=== PATIENT | female | born 1950 | race Two or more races ===

== ENCOUNTER 2018-09-09 03:47 | Emergency (ER) | payer OTHER ==
[~2018-09-09] VITALS: Ht 152.4 cm; Wt 66.7 kg
[~2018-09-09 03:47] MED LIST: ALEVE220 M1 PO; ASPIR 8181 MG; BISOPROLOL-HCT1 EAC1; DUI500 PO; KETO10TA2 PO; LISINOPRIL5 MG; METFORMIN HCL500 MG; PERCOCET 5-3251 EACH PO; VASOFLEX TABLE1 EACH; ZOCOR5 MG PO
== END 2018-09-09 07:36 | disposition home or self-care (01) ==
LOC: ER 03:47
DX: R00.2 Palpitations (principal)

== ENCOUNTER 2019-07-19 14:16 | Emergency (ER) | payer OTHER ==
[~2019-07-19] VITALS: Ht 144.8 cm; Wt 66.2 kg
[2019-07-19] MEDS ORDERED: CRESTOR5 MG PO (14:49)
== END 2019-07-19 17:04 | disposition home or self-care (01) ==
LOC: ER 14:16
DX: R00.2 Palpitations (principal)

== ENCOUNTER 2021-06-17 02:50 | Emergency (ER) | payer OTHER ==
[~2021-06-17] VITALS: Ht 144.8 cm; Wt 68.0 kg
[~2021-06-17 02:50] MED LIST changes: +CRESTOR5 MG PO
== END 2021-06-17 10:55 | disposition home or self-care (01) ==
LOC: ER 02:50
DX: R11.11 Vomiting without nausea (principal); R51.9 Headache, unspecified; N39.0 Urinary tract infection, site not specified; I16.0 Hypertensive urgency; I10 Essential (primary) hypertension

== ENCOUNTER 2021-09-04 08:49 | Emergency (ER) | payer OTHER ==
[~2021-09-04] VITALS: Ht 144.8 cm; Wt 65.8 kg
[2021-09-04] MEDS ORDERED: ZESTRIL10 M1 PO (08:57)
[2021-09-04] MEDS ORDERED: DOLOGEN 325-11 EACH PO (14:51)
[2021-09-04] MEDS ORDERED: ORPHENADRINE C100 MG PO (14:51)
[2021-09-04] MEDS ORDERED: CIPRO500 MG PO (14:51)
== END 2021-09-04 15:25 | disposition home or self-care (01) ==
LOC: ER 08:49
DX: M79.662 Pain in left lower leg (principal); R30.0 Dysuria

== ENCOUNTER 2022-02-11 00:03 | Inpatient (IN) | payer OTHER ==
[~2022-02-11] VITALS: Ht 144.8 cm; Wt 68.9 kg
[~2022-02-11 00:03] MED LIST changes: +CIPRO500 MG PO; +DOLOGEN 325-11 EACH PO; +ORPHENADRINE C100 MG PO; +ZESTRIL10 M1 PO
[2022-02-13] MEDS ORDERED: METFORMIN HCL500 M4 (16:12)
== END 2022-02-23 18:40 | disposition home or self-care (01) | DRG 390 ==
LOC: ER 00:03 → SURG 16:36
PROVIDERS: ADMIT Internal Medicine; ATTEND Internal Medicine
PROC: 0D9670Z Drainage of Stomach with Drainage Device, Via Natural or Artificial Opening (ICD-10-PCS; principal; 2022-02-11)
DX: K56.51 Intestinal adhesions [bands], with partial obstruction (principal); K57.10 Diverticulosis of small intestine without perforation or abscess without bleeding; E11.9 Type 2 diabetes mellitus without complications; Z79.84 Long term (current) use of oral hypoglycemic drugs; I10 Essential (primary) hypertension; Z91.018 Allergy to other foods

== ENCOUNTER 2023-01-29 02:02 | Emergency (ER) | payer OTHER ==
[~2023-01-29] VITALS: Ht 144.8 cm; Wt 68.0 kg
[~2023-01-29 02:02] MED LIST changes: +METFORMIN HCL500 M4
[2023-01-29] MEDS ORDERED: PEPCID AC20 MG PO (08:38)
[2023-01-29] MEDS ORDERED: LEVSIN/SL0.125 MG SL (08:38)
== END 2023-01-29 08:45 | disposition home or self-care (01) ==
LOC: ER 02:02
DX: R10.32 Left lower quadrant pain (principal); E11.9 Type 2 diabetes mellitus without complications; Z79.84 Long term (current) use of oral hypoglycemic drugs; I10 Essential (primary) hypertension; K57.92 Diverticulitis of intestine, part unspecified, without perforation or abscess without bleeding; K80.20 Calculus of gallbladder without cholecystitis without obstruction; Z91.018 Allergy to other foods

== ENCOUNTER 2023-06-03 08:19 | Emergency (ER) | payer OTHER ==
[~2023-06-03] VITALS: Ht 144.8 cm; Wt 63.5 kg
[~2023-06-03 08:19] MED LIST changes: +LEVSIN/SL0.125 MG SL; +PEPCID AC20 MG PO
[2023-06-03 10:35] LABS: HEMATOCRIT 42.2 % (36.0-45.00); HEMOGLOBIN 13.8 g/dL (12.0-15.00); MEAN CELL VOLUME 89.9 fL (80.00-100.00); MEAN CORPUSCULAR HEMOGLOBIN 29.5 pg (27.00-32.0); MEAN CORPUSCULAR HGB CONC 32.8 g/dl (32.0-36.0); PLATELET COUNT 303 K/uL (150-450); RED BLOOD COUNT 4.69 M/uL (4.00-6.00); RED CELL DISTRIBUTION WIDTH 14.1 % (11.5-14.5)
[2023-06-03 11:12] LABS: CALCIUM 9.7 mg/dL (8.5-10.1); CREATININE SERUM 0.9 mg/dL (0.55-1.02); GFR 61.21; POTASSIUM 3.9 mEq/L (3.5-5.1)
== END 2023-06-03 15:32 | disposition home or self-care (01) ==
LOC: ER 08:19
DX: K59.01 Slow transit constipation (principal); Z93.3 Colostomy status; Z91.018 Allergy to other foods; R10.32 Left lower quadrant pain; K57.30 Diverticulosis of large intestine without perforation or abscess without bleeding; K80.20 Calculus of gallbladder without cholecystitis without obstruction
CPT/HCPCS: 36415; 74177; 96372; 99284; J2250; J3490; Q9965